=== PATIENT | female | born 1955 | race Caucasian/White ===

== ENCOUNTER 2016-10-04 18:05 | Emergency (ER) | payer BC, OTHER ==
[2016-10-04] MEDS ORDERED: Sodium Chloride 0.9% 10 ML Syringe FLUSH PRN (18:24)
[2016-10-04 18:56] LABS: CHLORIDE,CL 101 mmol/L (98-107); SODIUM,NA 139 mmol/L (136-145)
[2016-10-04] MEDS ORDERED: Sodium Chloride 0.9% 1,000 ML IV ONE (19:23)
[2016-10-04] MEDS ORDERED: Ondansetron 4 MG/2 ML SDV IVPUSH ONE (19:40)
--- NOTE | 2016-10-05 08:20 | ER ---
Date of Service: 10/04/2016 Ms. Swanson presents to the emergency room with antegrade amnesia that started sometime between 3 o'clock and 4:30 this afternoon. The patient had spoken with her daughter from approximately 2:35-3:00 p.m. this afternoon and at that time, the daughter states that the patient was alert and answering all questions appropriately. She did not voice any concerns of headache or other neurologic symptoms at that time. At approximately 4:30 this afternoon, the patient called her , acutely confused, and exhibiting signs of antegrade amnesia. The patient has had no history of previous episodes of situational confusion in the past. states that the patient has been well recently. She has not offered any complaints. Her states that she was up late last night as a long time pet did which has been of some stress to the patient. The patient does not recall that the pet and does not recall any of the events of today. EMS was summoned to the scene and transported the patient. By the time the patient had been in the emergency room for few minutes, she did not recall the ambulance transportation from [facility]. The patient has not exhibited any focal neuro symptoms other than the situational confusion that she is exhibiting this afternoon. PAST MEDICAL HISTORY: 1. Hypertension. 2. Obesity. 3. Obstructive sleep apnea. 4. History of unknown type tachydysrhythmia. ALLERGIES: 1. NKDA. MEDICATIONS: 1. Metoprolol succinate 25 mg q. 24 hours. 2. Hydrochlorothiazide 25 mg once daily. 3. Zetia. REVIEW OF SYSTEMS: General: No fever or chills. HEENT: No sore throat, rhinorrhea, or congestion. Denies any headache. Respiratory: No shortness of breath. Cardiac: Denies any substernal chest pain. No jaw, arm, neck, or back pain. GI: No nausea, vomiting, or diarrhea. No melena, hematochezia, or hematemesis. : Denies any dysuria. Musculoskeletal: No myalgias or arthralgias. Neurologic: No fainting, blackouts, or lightheadedness. Please see history of present illness. It is unclear whether the patient had fallen and struck her head. She does not have recollection again of the day's events. PHYSICAL EXAMINATION: General: This is a 61-year-old female patient. No acute distress. Vital Signs: Initially were systolic blood pressure in the 180s. After she had been in the emergency room for a period of time, her serial blood pressures improved and her repeat blood pressure was approximately 135/70, heart rate is 88, O2 saturation 99% on room air. Respiratory rate is 16. The patient is afebrile. Skin: Warm, pink, and dry. HEENT: Head is normocephalic, atraumatic. Eyes, PERRLA. Extraocular movements are intact. Visual liao are within normal limits. Ears, TMs are clear. Mouth, oral mucosa is moist. No erythema or exudate noted in the hypopharynx. Neck: Supple without masses. There is no lymphadenopathy. Lungs: Clear to auscultation. Heart: Regular rate and rhythm. Normal S1, S2. No S3, S4, murmurs, clicks, or rubs. Abdomen: Soft, nontender. There is no hepatosplenomegaly or masses noted. Extremities: Without edema. Neurologic: NIH stroke scale was performed. With the exception of confusion as to the dates, was all within normal limits. She had no focal neuro symptoms such as numbness or tingling in her extremities or face. No facial droop noted. She has no pronator drift. Face is symmetrical. CT scan of the patient's brain was obtained. It did not reveal any acute pathology. CBC; WBCs are 10.9, hemoglobin is 13.4, platelets are 241. Coags; PT is 9.7, INR is 0.9, and PTT is 24.7. Chemistry; sodium is 139, potassium is 3.2, chloride is 101, bicarb is 26, BUN is 19, creatinine is 0.7. Creatinine clearance is 62.8. Glucose is 160, calcium is 9.0, corrected calcium is 9.08, total bilirubin is 0.4, AST is 22, ALT is 51, alkaline phosphatase is 104, troponin is 0.00. C-reactive protein mildly elevated at 1.5, total protein 7.4, albumin is 3.9, TSH is 2.44. Urinalysis was obtained. Specific gravity is 1.030, so she is dehydrated, pH is 5.5, slightly cloudy specimen. Negative protein, glucose, and occult blood, nitrites and leukocyte esterase. Urine toxicology was obtained, was all noted to be within normal limits. Blood alcohol was also negative. PA and lateral chest x-ray was obtained. There was no evidence of any acute infiltrate. EMERGENCY ROOM COURSE: IV access was established. Her family was present during her care. The patient was experiencing continued situation confusion, antegrade amnesia, and was repeating the same questions over and over again and, much to the distress of her family. The patient was started on normal saline at 200 mL an hour and was also given Zofran 4 mg IV for nausea prior to transport. She remained stable under my care in the emergency room. ASSESSMENT: Situational confusion, antegrade amnesia, possible occult closed head injury versus transient global amnesia. PLAN: I did speak at length with Dr. Cuadra, the neurologist on-call at [facility] in [place]. He felt that the patient was not exhibiting signs of any cerebral vascular insult at this time and also felt that the symptoms were likely secondary to transient global amnesia. Again, she was at home alone, so certainly she could have fallen and struck her head and now has a concussion, but she does not have any evidence of trauma to her scalp, no hematoma or edema, and the so likely this is not the case. At any rate, the patient will require further workup including probable MRA, echocardiogram, and a carotid ultrasound to rule out other causes of her confusion. The decision was made to transfer the patient to [facility] in [place]. I did speak with Dr. Arceo, the hospitalist protection agent, who graciously accepts the patient in transfer. The patient is a code level 1 and will be transported by [facility] ground ambulance. MWK: 10/04/2016 20:10:55 MODL: 10/04/2016 20:46:40 /[id number]
== END 2016-10-04 20:08 | disposition short-term general hospital (02) ==
LOC: VM.ED 18:05
DX: R41.1 Anterograde amnesia (principal); R41.0 Disorientation, unspecified; I10 Essential (primary) hypertension
CPT/HCPCS: 36415; 70450; 71020; 80053; 80305; 81001; 84443; 84484; 85025; 85610; 85730; 86140; 93005; 96361; 96374; 99285; G0480; J2405; J7030

== ENCOUNTER 2021-05-17 10:36 | Emergency (ER) | payer MEDICARE, BC ==
[2021-05-17] MEDS ORDERED: GI Cocktail Oral Solution 30 ML PO ONE (11:02)
[2021-05-17] MEDS ORDERED: Sodium Chloride 0.9% 10 ML Syringe FLUSH PRN (11:02)
[2021-05-17] MEDS ORDERED: Aspirin 81 MG Tab.Chew PO ONE (11:04)
--- NOTE | 2021-05-17 11:19 | EDM.PDOC ---
ED HPI GENERAL MEDICAL PROBLEM - General Chief Complaint: Cardiovascular Problem Stated Complaint: RAPID HEART RATE Time Seen by Provider: 05/17/21 10:56 Source of Information: Reports: Patient - History of Present Illness INITIAL COMMENTS - FREE TEXT/NARRATIVE: Liz is a 66 y/o female who comes to the ER with chest discomfort. She reports that she started to have these sx about 0100 this AM. She felt liek her heart was racing and she was having a hard time taking a deep breath. She has had this happen in the past, but it has been about 5 years since she has had an episode. She is currently on Metoprolol. Has seen Cardiology in the past, no intervention warranted at that time. Just prior to TRANSPORT NURSE coming to bedside, she had two very sharp chest pain and got very nauseated. Middle Chest Pain Score (Numeric/FACES): 10 - Related Data Allergies Allergy/AdvReac Type Severity Reaction Status Date / Time codeine Allergy Nausea and Verified 05/17/21 11:16 Vomiting Home Meds: Home Meds Metoprolol Succinate [Toprol XL] 25 mg PO DAILY 10/04/16 [History] hydroCHLOROthiazide [Hydrochlorothiazide] 25 mg PO DAILY 10/04/16 [History] Aspirin [Adult Aspirin] 81 mg PO DAILY 01/16/18 [History] Cholecalciferol (Vitamin D3) [Vitamin D3] 1,000 units PO DAILY 01/16/18 [History] Cyanocobalamin (Vitamin B-12) [Vitamin B-12] 250 mcg PO DAILY 01/16/18 [History] Ferrous Sulfate [Feosol] 325 mg PO DAILY 01/16/18 [History] Ibuprofen [Ibu-200] 200 mg PO DAILY 01/16/18 [History] Milk Thisle-Tumeric 1 cap PO DAILY 01/16/18 [History] Mupirocin Oint [Bactroban Oint] 1 applic TD DAILY 01/16/18 [History] Omeprazole 20 mg PO DAILY 01/16/18 [History] Potassium 99 mg PO DAILY 01/16/18 [History] Vitamin B Complex [B Complex] 1 tab PO DAILY 01/16/18 [History] atorvaSTATin Calcium [Atorvastatin Calcium] 1 tab PO DAILY 01/16/18 [History] fluorouraciL [Fluorouracil] 01/16/18 [History] Past Medical History HEENT History: Reports: Other (See Below) Other HEENT History: Macular edema left eye Cardiovascular History: Reports: High Cholesterol, Hypertension, Other (See Below) Other Cardiovascular History: Paroxysmal tachycardia Respiratory History: Reports: Sleep Apnea Gastrointestinal History: Reports: Colon Polyp, Other (See Below) Other Gastrointestinal History: Liver mass. diarrhea/constipation Genitourinary History: Reports: None HOSPITAL CHIEF EXECUTIVE OFFICER History: Reports: , Other (See Below) Other HOSPITAL CHIEF EXECUTIVE OFFICER History: HX abnormal pap smear Musculoskeletal History: Reports: RA Neurological History: Reports: Headaches, Chronic, Other (See Below) Other Neuro History: Transient global amnesia 09/2016 Psychiatric History: Reports: None Endocrine/Metabolic History: Reports: None, Obesity/BMI 30+ Hematologic History: Reports: Bleeding Disorder Other Hematologic History: Brusies easy Oncologic (Cancer) History: Reports: Squamous Cell Carcinoma Dermatologic History: Reports: Other (See Below) Other Dermatologic History: Squamous cell carcinma bilateral legs - Past Surgical History Head Surgeries/Procedures: Reports: None HEENT Surgical History: Reports: Cataract Surgery, Other (See Below) Other HEENT Surgeries/Procedures: Injections in left eye Respiratory Surgical History: Reports: None GI Surgical History: Reports: Cholecystectomy, Colonoscopy Endocrine Surgical History: Reports: None Neurological Surgical History: Reports: None Musculoskeletal Surgical History: Reports: None Dermatological Surgical History: Reports: Skin Biopsy ED ROS GENERAL - Review of Systems Review Of Systems: See Below Constitutional: Reports: Weakness HEENT: Reports: No Symptoms, Vertigo Respiratory: Reports: Shortness of Breath (mild) Cardiovascular: Reports: Chest Pain, Palpitations Endocrine: Reports: No Symptoms GI/Abdominal: Reports: Nausea : Reports: No Symptoms Musculoskeletal: Reports: No Symptoms Skin: Reports: No Symptoms Neurological: Reports: No Symptoms Psychiatric: Reports: No Symptoms Hematologic/Lymphatic: Reports: No Symptoms ED EXAM, GENERAL - Physical Exam Exam: See Below Exam Limited By: No Limitations General Appearance: Alert, WD/WN, No Apparent Distress ([place] female, lying quietly on the ER cart) Eye Exam: Bilateral Eye: PERRL Ears: Normal External Exam, Normal Canal, Hearing Grossly Normal Nose: Normal Inspection, Normal Mucosa Throat/Mouth: Normal Inspection, Normal Lips, Normal Oropharynx, Normal Voice Head: Atraumatic, Normocephalic Neck: Supple Respiratory/Chest: No Respiratory Distress, Lungs Clear, Chest Non-Tender Cardiovascular: Normal Peripheral Pulses, Regular Rate, Rhythm, No Murmur GI/Abdominal: Normal Bowel Sounds, Soft, Non-Tender (Female) Exam: Deferred Rectal (Female) Exam: Deferred Back Exam: Normal Inspection, Full Range of Motion Extremities: Normal Inspection, Normal Range of Motion, Normal Capillary Refill Neurological: Alert, Oriented, CN II-XII Intact Psychiatric: Normal Affect, Normal Mood Skin Exam: Warm, Dry, Intact, Normal Color #1 Interpretation EKG Date: 05/17/21 Time: 10:37 Rhythm: NSR Rate (Beats/Min): 170 Thatcher: Normal P-Wave: Present QRS: Normal ST-T: Normal QT: Normal EKG Interpretation Comments: Sinus Tachycardia #2 Interpretation EKG Date: 05/17/21 Time: 10:59 Rhythm: NSR Rate (Beats/Min): 82 Thatcher: Normal P-Wave: Present QRS: Normal ST-T: Normal QT: Normal EKG Interpretation Comments: Sinus Rhythm with PVCs noted Course - Vital Signs Text/Narrative:: 1056 The patient was seen by the TRANSPORT NURSE. EKG had been done prior to TRANSPORT NURSE arrival. Noted Tachycardia. Patient then had 2 sharp pains in her chest and became nauseated and she was then noted to be in a NSR. She was given ASA 243 mg po (She had 1-81mg tab at home) and labs were ordered. She was still a bit nauseated and a GI cocktail was given. 1220 Note Troponin-858, pt comfortable and pain free. Nausea subsided now also. Case discussed with Dr Ly Durham who advises consult with cardiology. 1310 Srini Davis contacted and awaiting call back from Cardiology. 1345 Dr Prince, Cardiology called back and report given. Advises Heparin and transfer to [place] for admission. Case presented to Dr Pino in the ER who is the accepting physician. Will start Heparin as requested by Floorperson. 1355 Plan reviewed with the patient and her . Awaiting bed assignment at [facility]. Patient remained stable until departing with [facility]. Last Recorded V/S: Last Vital Signs Temp 36.6 C 05/17/21 10:36 Pulse 80 05/17/21 12:55 Resp 10 L 05/17/21 12:55 BP 154/79 H 05/17/21 12:55 Pulse Ox 95 05/17/21 12:55 - Orders/Labs/Meds Orders: Active Orders 24 hr Category Date Time Status UA W/O MICROSCOPIC [URIN] Stat Lab 05/17/21 13:49 Ordered Heparin Sodium/0.45% NaCl [Heparin 25,000 Units in 1/2 Med 05/17/21 14:00 Ordered NS 500 ML] 25,000 units in 500 ml IV TITRATE Sodium Chloride 0.9% [Saline Flush] Med 05/17/21 11:02 Active 10 ml FLUSH ASDIRECTED PRN Saline Lock Insert [OM.PC] Stat Oth 05/17/21 11:03 Ordered Medication Orders Heparin Sodium/Sodium Chloride (Heparin 25,000 Units In 1/2 Ns 500 Ml) 25,000 units in 500 mls @ 200 mls/hr IV TITRATE ROBERT; Protocol Sodium Chloride (Sodium Chloride 0.9% 10 Ml Syringe) 10 ml FLUSH ASDIRECTED PRN PRN Reason: Keep Vein Open Labs: Laboratory Tests 05/17/21 05/17/21 Range/Units 11:20 11:20 WBC 8.4 (4.0-10.0) x10^3/uL RBC 4.05 (4.00-5.50) x10^6/uL Hgb 12.7 (12.0-16.0) g/dL Hct 37.2 (33.0-47.0) % MCV 91.9 (78.0-93.0) fL MCH 31.4 (26.0-32.0) pg MCHC 34.1 (32.0-36.0) g/dL RDW Coeff of Thelma 13.1 (10.0-15.0) % Plt Count 233 (130-400) x10^3/uL Immature Gran % (Auto) 0.20 (0.00-0.43) % Neut % (Auto) 70.4 (50.0-80.0) % Lymph % (Auto) 20.3 L (25.0-50.0) % Placer % (Auto) 8.8 (2.0-11.0) % Eos % (Auto) 0.1 (0.0-4.0) % Baso % (Auto) 0.2 (0.2-1.2) % Neut # (Auto) 5.9 (1.8-7.7) x10^3/uL Lymph # (Auto) 1.7 (1.0-4.8) x10^3/uL Placer # (Auto) 0.7 (0.0-0.8) x10^3/uL Eos # (Auto) 0.0 (0.0-0.5) x10^3/uL Baso # (Auto) 0.0 (0.0-0.2) x10^3/uL Immature Gran # (Auto) 0.02 (0.00-0.07) x10^3/uL Sodium 143 (136-145) mmol/L Potassium 3.9 (3.5-5.1) mmol/L Chloride 103 (98-107) mmol/L Carbon Dioxide 26 (21-32) mmol/L Anion Gap 17.9 H (5-15) mmol/L BUN 25 H (7-18) mg/dL Creatinine 0.7 (0.55-1.02) mg/dL Est Cr Clr Drug Dosing TNP Estimated GFR (MDRD) > 60 Glucose 134 H (70-99) mg/dL Calcium 10.1 (8.5-10.1) mg/dL Corrected Calcium 10.3 H (8.5-10.1) mg/dL Magnesium 2.0 (1.8-2.4) mg/dL Total Bilirubin 0.6 (0.2-1.0) mg/dL AST 27 (15-37) U/L ALT 44 (14-59) U/L Alkaline Phosphatase 120 H (46-116) U/L Troponin I High Sens 858 H* (<=51) ng/L Total Protein 6.8 (6.4-8.2) g/dL Albumin 3.7 (3.4-5.0) g/dL Globulin 3.1 Albumin/Globulin Ratio 1.19 TSH, Ultra Sensitive 2.508 (0.358-3.74) uIU/mL Meds: Medications Generic Name Dose Route Start Last Admin Trade Name Freq PRN Reason Stop Dose Admin Heparin Sodium/Sodium Chloride 25,000 units in 500 mls @ 200 mls/hr 05/17/21 14:00 Heparin 25,000 Units In 1/2 Ns 500 Ml IV TITRATE ROBERT Protocol 10,000 UNITS/HR Sodium Chloride 10 ml 05/17/21 11:02 Sodium Chloride 0.9% 10 Ml Syringe FLUSH ASDIRECTED PRN Keep Vein Open Discontinued Medications Generic Name Dose Route Start Last Admin Trade Name Freq PRN Reason Stop Dose Admin Al Hydroxide/Mg Hydroxide 30 ml 05/17/21 11:02 05/17/21 11:26 Gi Cocktail Oral Solution 30 Ml PO 05/17/21 11:03 30 ml ONETIME ONE Administration Aspirin 243 mg 05/17/21 11:04 05/17/21 10:45 Aspirin 81 Mg Tab.Chew PO 05/17/21 11:05 243 mg ONETIME ONE Administration Heparin Sodium (Porcine) 5,000 units 05/17/21 13:49 Heparin Sodium 5,000 Units/Ml Vial IVPUSH 05/17/21 13:50 .BOLUS ONE Departure - Departure Time of Disposition: 13:59 Disposition: DC/Tfer to Acute Hospital 02 Reason for Transfer *Q: Other (Cardiology) Condition: Good Clinical Impression: Elevated troponin I level, SVT (supraventricular tachycardia) Referrals: Ly Seaman MD [Primary Care Provider] - Forms: ED Department Discharge, Interfacility Transfer EMTALA Additional Instructions: -Transfer to [place] Sepsis Event Note (ED) - Focused Exam Vital Signs: Vital Signs Temp Pulse Resp BP Pulse Ox 05/17/21 12:55 80 10 L 154/79 H 95 05/17/21 11:43 85 13 139/89 95 05/17/21 11:02 91 15 146/97 H 97 05/17/21 10:36 36.6 C 188 H 16 133/100 H 96 - Problem List & Annotations (1) Elevated troponin I level SNOMED Code(s): 585386602 Code(s): R77.8 - OTHER SPECIFIED ABNORMALITIES OF PLASMA PROTEINS Status: Acute Current Visit: Yes Annotation/Comment:: [id number] at 1120, 3 hour level pending. Heparin 5000 units bolus with 1000units/hr started. (2) SVT (supraventricular tachycardia) SNOMED Code(s): 7940437 Code(s): I47.1 - SUPRAVENTRICULAR TACHYCARDIA Status: Acute Current Visit: Yes Annotation/Comment:: -Converted to NSR right after admit to ER and remained in normal. Currently on Metoprolol XL 25mg po qd. - My Orders Last 24 Hours: My Active Orders 05/17/21 11:02 Sodium Chloride 0.9% [Saline Flush] 10 ml FLUSH ASDIRECTED PRN 05/17/21 11:03 Saline Lock Insert [OM.PC] Stat 05/17/21 13:49 UA W/O MICROSCOPIC [URIN] Stat 05/17/21 14:00 Heparin Sodium/0.45% NaCl [Heparin 25,000 Units in 1/2 NS 500 ML] 25,000 units in 500 ml IV TITRATE - Assessment/Plan Last 24 Hours: My Active Orders 05/17/21 11:02 Sodium Chloride 0.9% [Saline Flush] 10 ml FLUSH ASDIRECTED PRN 05/17/21 11:03 Saline Lock Insert [OM.PC] Stat 05/17/21 13:49 UA W/O MICROSCOPIC [URIN] Stat 05/17/21 14:00 Heparin Sodium/0.45% NaCl [Heparin 25,000 Units in 1/2 NS 500 ML] 25,000 units in 500 ml IV TITRATE Plan: -Transfer to [facility]-Dr Pino
[2021-05-17 11:53] LABS: CHLORIDE,CL 103 mmol/L (98-107); SODIUM,NA 143 mmol/L (136-145)
[2021-05-17 11:54] LABS: ANION GAP 17.9 mmol/L (5-15)
[2021-05-17] MEDS ORDERED: Heparin Sodium 5,000 Units/ML Vial IVPUSH ONE (13:49)
[2021-05-17] MEDS ORDERED: Heparin Sodium/0.45% NaCl 25,000 UNITS/500 ML BAG IV SCH ×2 (14:00→14:15)
[2021-05-17 15:25] VITALS: BP 132/89; PULSE 82
== END 2021-05-17 15:12 | disposition short-term general hospital (02) ==
LOC: VM.ED 10:36
DX: I47.1 Supraventricular tachycardia (principal); R77.8 Other specified abnormalities of plasma proteins; I10 Essential (primary) hypertension; E78.00 Pure hypercholesterolemia, unspecified; E66.9 Obesity, unspecified; Z68.37 Body mass index [BMI] 37.0-37.9, adult; Z79.82 Long term (current) use of aspirin; Z79.899 Other long term (current) drug therapy; Z88.5 Allergy status to narcotic agent
CPT/HCPCS: 36415; 80053; 83735; 84443; 84484; 85025; 93005; 93010; 96365; 99284; 99285-25; A9270-GY; J1644

== ENCOUNTER 2022-01-05 07:14 | Emergency (ER) | payer MEDICARE, BC ==
[2022-01-05] MEDS: Sodium Chloride 0.9% 1,000 ML IV ONE (08:00)
[2022-01-05 08:03] LABS: CHLORIDE,CL 104 mmol/L (98-107); SODIUM,NA 142 mmol/L (136-145)
[2022-01-05 08:04] LABS: ANION GAP 18.9 mmol/L (5-15); ESTIMATED GFR 95 mL/min (>=60)
[2022-01-05] MEDS: Metoprolol Tartrate 5 MG/5 ML SDV IVPUSH ONE (08:05)
[2022-01-05] MEDS: Magnesium Oxide 400 MG Tab PO ONE (08:40)
[2022-01-05] MEDS: Potassium Chloride 10% 20 MEQ/15 ML Soln 15 ML UD Cup PO ONE (08:50)
[2022-01-05] MEDS: Potassium Bicarbonate/Cit Ac 10 MEQ Effervescent Tab PO ONE (08:53)
[2022-01-05 10:27] VITALS: BP 113/65; PULSE 76
== END 2022-01-05 09:32 | disposition home or self-care (01) ==
LOC: VM.ED 07:14
DX: I47.1 Supraventricular tachycardia (principal); E87.6 Hypokalemia; I10 Essential (primary) hypertension; E78.00 Pure hypercholesterolemia, unspecified; E66.9 Obesity, unspecified; Z88.5 Allergy status to narcotic agent
CPT/HCPCS: 80048; 84484; 85025; 93005; 93010; 96361; 96374; 99284; 99285-25; A9270-GY; J3490; J7030

== ENCOUNTER 2023-01-31 07:19 | Emergency (ER) | payer MEDICARE, BC ==
[2023-01-31] MEDS: Diltiazem 50 MG/10 ML SDV IVPUSH ONE (07:36)
[2023-01-31 07:40] LABS: BASOPHILS PERCENT AUTO 0.3 % (0.2-1.2); EOSINOPHILS PERCENT AUTO 0.3 % (0.0-4.0); HEMATOCRIT 40.7 % (33.0-47.0); HEMOGLOBIN 13.8 g/dL (12.0-16.0); IMMATURE GRAN ABSOLUTE AUTO 0.03 x10^3/uL (0.00-0.07); LYMPHOCYTES ABSOLUTE AUTO 3.1 x10^3/uL (1.0-4.8); LYMPHOCYTES PERCENT AUTO 27.1 % (25.0-50.0); MEAN CORPUSCULAR HEMOGLOBIN 30.9 pg (26.0-32.0); MEAN CORPUSCULAR HGB CONC 33.9 g/dL (32.0-36.0); MEAN CORPUSCULAR VOLUME 91.3 fL (78.0-93.0); MONOCYTES ABSOLUTE AUTO 0.8 x10^3/uL (0.0-0.8); MONOCYTES PERCENT AUTO 6.7 % (2.0-11.0); NEUTROPHILS ABSOLUTE AUTO 7.5 x10^3/uL (1.8-7.7); NEUTROPHILS PERCENT AUTO 65.3 % (50.0-80.0); PLATELET COUNT,PLT 289 x10^3/uL (130-400); RED BLOOD CELL COUNT 4.46 x10^6/uL (4.00-5.50); WHITE BLOOD CELL COUNT,WBC 11.5 x10^3/uL (4.0-10.0)
[2023-01-31 08:00] LABS: A/G RATIO 0.89; ALANINE AMINOTRANSFERASE,ALT 52 U/L (14-59); ALBUMIN 3.3 g/dL (3.4-5.0); ALKALINE PHOSPHATASE 150 U/L (46-116); ASPARTATE AMNIOTRANSFERASE,AST 31 U/L (15-37); BILIRUBIN TOTAL 0.5 mg/dL (0.2-1.0); BLOOD UREA NITROGEN,BUN 25 mg/dL (7-18); C-REACTIVE PROTEIN 0.28 mg/dL (<=0.30); CALCIUM 9.6 mg/dL (8.5-10.1); CARBON DIOXIDE,CO2 28 mmol/L (21-32); CHLORIDE,CL 105 mmol/L (98-107); CREATINE KINASE,CK 85 U/L (26-192); CREATININE 0.9 mg/dL (0.55-1.02); GLUCOSE RANDOM 160 mg/dL (70-99); SODIUM,NA 144 mmol/L (136-145)
[2023-01-31 08:01] LABS: ESTIMATED GFR 70 mL/min (>=60)
[2023-01-31 09:08] VITALS: BP 128/70; PULSE 72
== END 2023-01-31 09:10 | disposition home or self-care (01) ==
LOC: VM.ED 07:19
DX: I47.1 Supraventricular tachycardia (principal); R79.89 Other specified abnormal findings of blood chemistry; E78.00 Pure hypercholesterolemia, unspecified; I10 Essential (primary) hypertension; E66.9 Obesity, unspecified; Z79.82 Long term (current) use of aspirin; Z79.899 Other long term (current) drug therapy; Z68.42 Body mass index [BMI] 45.0-49.9, adult
CPT/HCPCS: 80053; 82550; 84484; 85025; 86140; 93005; 96374; 99285-25; J3490

== ENCOUNTER 2023-05-04 09:12 | Day surgery (SDC) | payer MEDICARE, BC ==
[~2023-05-04 09:12] MED LIST: Lactated Ringers 1,000 ML IV SCH
[2023-05-04] MEDS ORDERED: Propofol 200 MG/20 ML SDV ONE ×2 (10:37→11:16)
[2023-05-04] MEDS ORDERED: Ondansetron 4 MG/2 ML SDV ONE (10:37)
[2023-05-04] MEDS ORDERED: Midazolam 1 MG/ML 2 ML SDV ONE (10:38)
[2023-05-04] MEDS ORDERED: fentaNYL 100 MCG/2 ML SDV ONE (10:38)
[2023-05-04 12:00] VITALS: BP 133/71; PULSE 69
== END 2023-05-04 12:42 | disposition home or self-care (01) ==
LOC: VM.SDS 09:12
PROVIDERS: ATTEND Family Medicine
DX: Z12.11 Encounter for screening for malignant neoplasm of colon (principal); D12.3 Benign neoplasm of transverse colon; K62.1 Rectal polyp; Q43.8 Other specified congenital malformations of intestine; E78.5 Hyperlipidemia, unspecified; I10 Essential (primary) hypertension; I25.2 Old myocardial infarction; K21.9 Gastro-esophageal reflux disease without esophagitis; G47.33 Obstructive sleep apnea (adult) (pediatric); M06.9 Rheumatoid arthritis, unspecified; I47.10 Supraventricular tachycardia, unspecified; E66.9 Obesity, unspecified; Z90.49 Acquired absence of other specified parts of digestive tract; Z80.0 Family history of malignant neoplasm of digestive organs; Z79.899 Other long term (current) drug therapy; Z79.82 Long term (current) use of aspirin; Z88.5 Allergy status to narcotic agent; Z68.42 Body mass index [BMI] 45.0-49.9, adult
CPT/HCPCS: 00811; 45380; 45381; 88305; J2250; J2405; J2704; J3010; J7120

== ENCOUNTER 2023-07-19 13:47 | Emergency (ER) | payer MEDICARE, BC ==
[2023-07-19] MEDS ORDERED: Diltiazem 50 MG/10 ML SDV IVPUSH ONE (14:06)
[2023-07-19 14:23] LABS: EOSINOPHILS PERCENT AUTO 0.1 % (0.0-4.0); HEMATOCRIT 40.4 % (33.0-47.0); HEMOGLOBIN 13.5 g/dL (12.0-16.0); IMMATURE GRAN ABSOLUTE AUTO 0.03 x10^3/uL (0.00-0.07); LYMPHOCYTES ABSOLUTE AUTO 0.6 x10^3/uL (1.0-4.8); LYMPHOCYTES PERCENT AUTO 6.5 % (25.0-50.0); MEAN CORPUSCULAR HEMOGLOBIN 30.5 pg (26.0-32.0); MEAN CORPUSCULAR HGB CONC 33.4 g/dL (32.0-36.0); MEAN CORPUSCULAR VOLUME 91.4 fL (78.0-93.0); MONOCYTES ABSOLUTE AUTO 0.5 x10^3/uL (0.0-0.8); MONOCYTES PERCENT AUTO 5.1 % (2.0-11.0); NEUTROPHILS ABSOLUTE AUTO 8.5 x10^3/uL (1.8-7.7); PLATELET COUNT,PLT 222 x10^3/uL (130-400); RED BLOOD CELL COUNT 4.42 x10^6/uL (4.00-5.50); WHITE BLOOD CELL COUNT,WBC 9.7 x10^3/uL (4.0-10.0)
[2023-07-19 14:46] LABS: A/G RATIO 1.06; ALANINE AMINOTRANSFERASE,ALT 30 U/L (14-59); ALBUMIN 3.6 g/dL (3.4-5.0); ALKALINE PHOSPHATASE 118 U/L (46-116); ASPARTATE AMNIOTRANSFERASE,AST 15 U/L (15-37); BILIRUBIN TOTAL 0.5 mg/dL (0.2-1.0); BLOOD UREA NITROGEN,BUN 23 mg/dL (7-18); CALCIUM 9.1 mg/dL (8.5-10.1); CARBON DIOXIDE,CO2 26 mmol/L (21-32); CHLORIDE,CL 106 mmol/L (98-107); CREATININE 0.8 mg/dL (0.55-1.02); GLUCOSE RANDOM 130 mg/dL (70-99); POTASSIUM,K 3.9 mmol/L (3.5-5.1); SODIUM,NA 144 mmol/L (136-145)
[2023-07-19 14:47] LABS: ANION GAP 15.9 mmol/L (5-15); ESTIMATED GFR 80 mL/min (>=60)
[2023-07-19 16:43] VITALS: BP 116/81; PULSE 180
== END 2023-07-19 15:53 | disposition home or self-care (01) ==
LOC: VM.ED 13:47
DX: I47.10 Supraventricular tachycardia, unspecified (principal); I10 Essential (primary) hypertension; E78.00 Pure hypercholesterolemia, unspecified; I25.2 Old myocardial infarction; E66.9 Obesity, unspecified; Z79.82 Long term (current) use of aspirin; Z79.899 Other long term (current) drug therapy; Z88.5 Allergy status to narcotic agent
CPT/HCPCS: 80053; 84484; 85025; 93005; 93010; 96374; 99284; 99285; J3490